=== PATIENT | male | born 1965 | race Caucasian/White ===

== ENCOUNTER 2018-07-27 06:15 | Emergency (ER) | payer MEDICAID, SELFPAY ==
[2018-07-27 06:16] VITALS: BP 154/117; PULSE 97; RESP 24; TEMP 36; O2SAT 98; BMI 26.0
--- NOTE | 2018-07-27 06:29 | RAD_ITS ---
STUDY: X-RAY - RIGHT RADIUS AND ULNA REASON FOR EXAM: Male, 53 years old. Status post injury TECHNIQUE: 2 view(s) of the forearm. COMPARISON: None. FINDINGS: There is no demonstrated soft tissue swelling. Normal visualized radius. Normal visualized ulna. RAD/Forearm 2 Views IMPRESSION: Normal x-ray examination of the radius and ulna. Electronically Signed: Ralph Perera DO at 7:21 EDT Tel , Service support ,
[2018-07-27] MEDS: morphine 8 MG/ML Syringe IM (06:37)
--- NOTE | 2018-07-27 07:59 | ED.VISSUMM ---
- ER Visit Summary Date of Service: 07/27/18 Chief Complaint: Right forearm injury History of Present Illness: The patient is a 53 M minimum washing machine dropped onto his right forearm this morning. He has severe pain to the forearm. He states he has difficulty moving his fingers. He is left-hand dominant. Past history significant for coronary artery disease, [place], cardiac stent. He also has rheumatoid arthritis. Physical Examination: Vital signs significant for blood pressure 154/117, otherwise unremarkable. Patient sitting on the side of bed. He is uncomfortable but in no acute distress. Heart is regular rate and rhythm. Lung sounds are clear. Right upper extremity reveals no tenderness over the shoulder, humerus, or elbow. He has deformity type lesion over the right midshaft forearm with indentation into his skin. Wrist itself is nontender to palpation. He has strong distal pulses. He has sensation to light touch over the fingertips. Test Results: Right forearm x-rays reveal no acute bony injury. Emergency Department Course and Treatment: Patient was initially given 8 mg of IM morphine. On repeat evaluation he still having significant pain. Forearm is not tense, however patient states he cannot move his fingers. Working with him further, he can wiggle fingers but has extreme pain with doing so. He has strong distal pulses. He has good cap refill. Two-point discrimination testing is performed and is accurate approximately 70% of the time. Most of the time he tells me he can feel me touching his fingers, but is unsure if it is 1 or 2 points. At this time I am concerned about significant muscle or nerve injury to the forearm. Will order forearm MRI to further evaluate this and he will be further monitored. Treatment Plan: [] Disposition: [] Impression: Crush injury right forearm This note was generated with [email or web address] dictation software. It may contain incorrect words, spelling, and punctuation that were not noted in review of the chart prior to signing ED Disposition - Plan for ED Patient: Chief Complaint: Upper Extremity Injury Referrals: Stevenson Martínez MD [Primary Care Provider] -
[2018-07-27] MEDS: HYDROmorphone 1 MG/ML Syringe 2 MG IM (08:09)
[2018-07-27 08:16] VITALS: BP 135/104; PULSE 81; RESP 18; O2SAT 9
--- NOTE | 2018-07-27 09:48 | ED.RN ---
pt states that he has to be in court at 1030 in [facility]. at bedside offering to call court system for pt d/t need to be transferred. pt refuses. pt states he is not missing court. physician verbalized need for trauma transfer d/t risk of losing arm. pt verbalizes understanding, states he will go to hospital after court. pt signs out ama.
== END 2018-07-27 09:50 | disposition left against medical advice (07) ==
LOC: ED 07:10
PROVIDERS: Emergency Provider Emergency Medicine; Family Provider Family Medicine; PCP Family Medicine
DX: T79.A0XA Compartment syndrome, unspecified, initial encounter (principal); W20.8XXA Other cause of strike by thrown, projected or falling object, initial encounter; I25.10 Atherosclerotic heart disease of native coronary artery without angina pectoris; I25.2 Old myocardial infarction; M06.9 Rheumatoid arthritis, unspecified; E78.00 Pure hypercholesterolemia, unspecified; Z72.0 Tobacco use
CPT/HCPCS: 73090; 99282; A4216

== ENCOUNTER 2018-12-10 13:44 | Emergency (ER) | payer MEDICAID, SELFPAY ==
[2018-12-10 13:45] VITALS: BP 122/83; PULSE 90; RESP 20; TEMP 36.7; O2SAT 98; BMI 27.3
--- NOTE | 2018-12-10 14:15 | ED.DCSUM_ITS ---
- ER Visit Summary Date of Service: 12/10/18 Chief Complaint: [] Left knee pain acute recurrent fall History of Present Illness: The patient is a 53 M [] long history of left knee pain chronically, he is been seen by multiple physicians has been told he needs knee surgery of some kind he is been seen by pain management then he moved he is in a new location indicates he is trying to reestablish with physicians he walks with a cane because of the [place] nature of the weather indicates he slipped landed laterally on the lateral side of the left knee and came in for evaluation, the pain he is having is not any different than what is been in the past no head neck chest or abdominal pain he denies being on current pain management reports in the past has been on Percocet Physical Examination: [] General, no distress resting comfortably HEENT is generally unremarkable The neck is supple no adenopathy Cardiovascular, regular rate and rhythm Lungs, clear bilateral Abdomen, soft nontender Extremities, no clubbing cyanosis or edema, he has a nonspecific discomfort to the left knee there is no instability bruising or contusion is able to extend he wears a metallic type knee brace to support his knee thigh hip tib-fib ankle and foot are unremarkable Neurologic, awake alert answering questions appropriately moving all 4 extremities Test Results: [] Emergency Department Course and Treatment: [] xRays of the knee are obtained that show nothing acute he was treated with morphine here for his acute symptoms plan to him he cannot be managed to the emergency room with chronic narcotic pain management per regulations by multiple agencies, this must be done by one provider, he will be discharged on Naprosyn continue to wear his brace and follow-up with the outpatient providers he has arranged care with Treatment Plan: [] Disposition: [] Stable home Impression: [] Acute recurrent left knee pain and injury This note was generated with [employer] dictation software. It may contain incorrect words, spelling, and punctuation that were not noted in review of the chart prior to signing ED Disposition - Plan for ED Patient: Referrals: Stevenson Martínez MD [Primary Care Provider] -
--- NOTE | 2018-12-10 14:15 | ED.DEP ---
ED Disposition - Plan for ED Patient: Instructions: ED Sprain Knee Prescriptions: Naproxen [Naprosyn] 500 mg PO BID PRN #20 tab Referrals: Stevenson Martínez MD [Primary Care Provider] - Additional Instructions: Follow-up with all of the outpatient providers who you have scheduled to see
[2018-12-10] MEDS: Ondansetron ODT 4 MG Tablet PO (14:24)
[2018-12-10] MEDS: morphine 8 MG/ML Syringe SC (14:24)
--- NOTE | 2018-12-10 14:35 | RAD_ITS ---
STUDY: X-RAY - LEFT KNEE REASON FOR EXAM: Male, 53 years old. Pain following injury. TECHNIQUE: 3 view(s) of the knee. COMPARISON: None. FINDINGS: Normal visualized distal femur. Normal visualized proximal tibia and fibula. Normal proximal tibiofibular articulation. There is mild degenerative arthrosis of the medial femorotibial compartment. Normal lateral femorotibial compartment. Normal patellofemoral articulation. The soft tissue structures are unremarkable. RAD/Knee 3 Views IMPRESSION: Mild degree of joint space narrowing involving the medial compartment of the knee joint. Electronically Signed: Carmelo Rooney MD at 14:52 EST , Service support ,
== END 2018-12-10 15:35 | disposition home or self-care (01) ==
LOC: ED 14:17
PROVIDERS: Emergency Provider Emergency Medicine; Family Provider Family Medicine; PCP Family Medicine
DX: M25.562 Pain in left knee (principal); Z91.81 History of falling
CPT/HCPCS: 73562; 96372